=== PATIENT | female | born 1960 | race Two or more races ===

== ENCOUNTER 2017-12-20 09:25 | Outpatient (CLI) | payer OTHER | END 2017-12-20 09:33 | disposition home or self-care (01) | LOC: MAMO-SONO 09:25 | DX: Z12.31 Encounter for screening mammogram for malignant neoplasm of breast (principal); Z78.0 Asymptomatic menopausal state; Z78.9 Other specified health status; N95.1 Menopausal and female climacteric states; N60.11 Diffuse cystic mastopathy of right breast; N60.12 Diffuse cystic mastopathy of left breast; N64.4 Mastodynia; R92.2 Inconclusive mammogram ==

== ENCOUNTER 2018-12-24 10:54 | Outpatient (CLI) | payer OTHER | END 2018-12-24 12:30 | disposition home or self-care (01) | LOC: MAMO-SONO 10:54 | DX: Z78.0 Asymptomatic menopausal state (principal); Z78.9 Other specified health status; N60.19 Diffuse cystic mastopathy of unspecified breast; N64.4 Mastodynia; N63.10 Unspecified lump in the right breast, unspecified quadrant; N63.20 Unspecified lump in the left breast, unspecified quadrant; Z12.31 Encounter for screening mammogram for malignant neoplasm of breast; Z87.898 Personal history of other specified conditions ==

== ENCOUNTER 2019-12-26 13:20 | Outpatient (CLI) | payer OTHER | END 2019-12-26 13:25 | disposition home or self-care (01) | LOC: MAMO-SONO 13:20 | PROVIDERS: ATTEND Obstetrics & Gynecology | DX: Z12.31 Encounter for screening mammogram for malignant neoplasm of breast (principal); Z78.9 Other specified health status; N95.1 Menopausal and female climacteric states; N60.19 Diffuse cystic mastopathy of unspecified breast; N64.4 Mastodynia; N63.10 Unspecified lump in the right breast, unspecified quadrant; N63.20 Unspecified lump in the left breast, unspecified quadrant ==

== ENCOUNTER 2022-01-06 05:00 | Day surgery (SDC) | payer OTHER | END 2022-01-06 11:05 | disposition home or self-care (01) | LOC: AMB-ENDOS 05:00 | PROVIDERS: ATTEND Surgery | DX: D12.4 Benign neoplasm of descending colon (principal); D12.3 Benign neoplasm of transverse colon; K64.4 Residual hemorrhoidal skin tags ==

== ENCOUNTER 2022-01-13 10:52 | Outpatient (CLI) | payer OTHER | END 2022-01-13 11:06 | disposition home or self-care (01) | LOC: MAMO-SONO 10:52 | PROVIDERS: ATTEND Obstetrics & Gynecology | DX: N63.0 Unspecified lump in unspecified breast (principal); N64.4 Mastodynia; Z12.31 Encounter for screening mammogram for malignant neoplasm of breast; R92.2 Inconclusive mammogram ==

== ENCOUNTER 2023-01-19 14:14 | Outpatient (CLI) | payer OTHER | END 2023-01-19 14:52 | disposition home or self-care (01) | LOC: MAMO-SONO 14:14 | PROVIDERS: ATTEND Obstetrics & Gynecology | DX: Z12.31 Encounter for screening mammogram for malignant neoplasm of breast (principal); N63.0 Unspecified lump in unspecified breast; N64.4 Mastodynia ==

== ENCOUNTER 2024-07-11 11:41 | Outpatient (CLI) | payer OTHER | END 2024-07-11 11:52 | disposition home or self-care (01) | LOC: MAMO-SONO 11:41 | PROVIDERS: ATTEND Obstetrics & Gynecology Obstetrics | DX: N64.0 Fissure and fistula of nipple (principal) ==